=== PATIENT | male | born 1985 | race Caucasian/White ===

== ENCOUNTER 2020-02-17 12:10 | Emergency (ER) | payer SELFPAY ==
--- NOTE | ~2020-02-17 | XR_ITS ---
EXAMINATION: XR wrist LT min 3V DATE: 02/17/2020 12:34 INDICATION: Left wrist pain. Injury. TECHNIQUE: 4 views of left wrist were obtained. COMPARISON: None. FINDINGS: There is a nondisplaced transverse fracture of distal radius. No involvement of the distal articular surface or distal radioulnar joint. Ulnar styloid is intact. Joint spaces are normal. IMPRESSION: 1. Nondisplaced transverse fracture of distal radius. Reviewed, dictated and finalized at location A.
[2020-02-17 12:22] VITALS: BP 151/87; PULSE 65; RESP 16; TEMP 36.4; O2SAT 99
--- NOTE | 2020-02-17 12:24 | PC.NURSE ---
1221 Pt taken from triage to xray
--- NOTE | 2020-02-17 12:51 | ED.UPPEXIN ---
HPI - Extremity Injury (Upper) General Chief Complaint: Extremity Injury, Upper Stated Complaint: left wrist pain Time Seen by Provider: 02/17/20 12:36 Source: patient and RN notes reviewed Mode of arrival: ambulatory Limitations: no limitations History of Present Illness HPI narrative: Patient presents today with an injury to his left wrist. States he was pull starting a 4 aldrich, when it backfired and yanked the string the opposite way, tweaking his wrist. Denies numbness or tingling in the arm or hand. Currently rates his pain 6/10 at rest, which increases to 10/10 with movement. Injury occurred at 1030 this morning. MD complaint: injury to: left and wrist Related Data Home Medications Medication Instructions Recorded Confirmed No Home Medications 02/17/20 02/17/20 Allergies Allergy/AdvReac Type Severity Reaction Status Date / Time No Known Allergies Allergy Verified 02/17/20 12:36 Review of Systems Review of Systems: Narrative: CONSTITUTIONAL: Denies body aches, fever, chills, or sweats. EYES: Denies visual changes, redness, or discharge. ENT: Denies rhinorrhea, congestion, sore throat, or otalgia. CARDIOVASCULAR: Denies chest pain, palpitations, or edema. RESPIRATORY: Denies cough or dyspnea. GASTROINTESTINAL: Denies abdominal pain, nausea, vomiting, or diarrhea. GENITOURINARY: Denies dysuria or hematuria. SKIN: Denies rash, itching, or wounds. MUSCULOSKELETAL: Denies back pain, or myalgia. + Left wrist injury NEUROLOGIC: Denies headache, numbness, tingling, or weakness. PSYCH: Denies depression or anxiety. PMFSH Social History Social History Gender identity (if verbalized by the patient): Male Comments At time of signature, I have reviewed and agree with nursing past medical, surgical, social and family history unless otherwise noted. Please see nursing chart for further information. There is no relevant family history pertinent to the presenting complaint Exam Narrative: Exam Narrative: GENERAL: Well-appearing, well-nourished, and in no acute distress. HEAD: Normocephalic, atraumatic. EYES: EOMI. No redness or drainage. Conjunctivae normal. ENT: Mucous membranes pink and moist. NECK: Normal AROM. CHEST: No respiratory distress. EXTREMITIES: Left wrist: Tenderness to the distal radius with moderate localized swelling dorsally. No tenderness to the distal ulna. No snuffbox tenderness. No distal edema. No ecchymosis or wounds noted. Distal sensation intact. Capillary refill normal. Radial pulse normal. Pain with any active or passive range of motion. SKIN: Warm, dry, no rash. Capillary refill normal. Normal skin turgor. NEURO: No focal deficits. Alert and oriented x3. Gait steady. PSYCH: Normal affect. No signs of depression or anxiety. Course Vital Signs Vital signs: Vital Signs Temperature 97.5 F L 02/17/20 12:22 Pulse Rate 65 02/17/20 12:22 Respiratory Rate 16 02/17/20 12:22 Blood Pressure 151/87 H 02/17/20 12:22 Pulse Oximetry 99 02/17/20 12:22 Temperature 97.5 F L 02/17/20 12:22 Pulse Rate 65 02/17/20 12:22 Respiratory Rate 16 02/17/20 12:22 Blood Pressure 151/87 H 02/17/20 12:22 Pulse Oximetry 99 02/17/20 12:22 Reviewed. Pt has been instructed to follow up with his PCP regarding his elevated blood pressure today. MDM - Extremity Injury (Upper) Differential Diagnosis Differential diagnosis: Likely sprain and strain of wrist, fracture of wrist and fracture of hand Imaging Data Radiologist's impression: ITS Impressions Wrist X-Ray 02/17/20 12:40 IMPRESSION: 1. Nondisplaced transverse fracture of distal radius. Critical Care Time Critical Care Time Critical Care Time: No Discharge Plan Discharge Prescriptions: No Action No Home Medications RF: 0
== END 2020-02-17 13:06 | disposition home or self-care (01) ==
PROVIDERS: Emergency Provider Nurse Practitioner
DX: S52.592A Other fractures of lower end of left radius, initial encounter for closed fracture (principal); X50.9XXA Other and unspecified overexertion or strenuous movements or postures, initial encounter; Z87.891 Personal history of nicotine dependence
CPT/HCPCS: 29125; 73110; 99214; G0463

== ENCOUNTER 2023-08-09 15:50 | Emergency (ER) | payer SELFPAY ==
--- NOTE | ~2023-08-09 | CT_ITS ---
EXAMINATION: CT chest abdomen pelvis w con DATE: 08/09/2023 20:12 INDICATION: Left rib pain. Left abdominal pain. Fall. TECHNIQUE: Computed tomography (CT) of the chest, abdomen, and pelvis was performed with 100 mL Omnip aque 350 intravenous contrast. Automated exposure control and iterative reconstruction technique were employed. The dose-length product was 1477.92 mGy-cm. COMPARISON: CT abdomen and pelvis 06/27/16 FINDINGS: CHEST CT: The lungs demonstrate mild atelectasis. There are a few nodules in the lungs measuring up to 4 mm, li susanne benign. A calcified left lung nodule and calcified left hilar lymph nodes are consistent with ol d granulomatous disease. No pleural effusion. The heart size is normal. No pericardial effusion. Ther e is mild thoracic spondylosis. ABDOMEN/PELVIS CT: The liver, gallbladder, spleen, pancreas, adrenal glands, and kidneys are normal. There are no dilate d loops of bowel. The appendix is normal. There are no pathologically enlarged lymph nodes. There is no free intraperitoneal fluid. There is mild lumbar spondylosis. IMPRESSION: 1. No posttraumatic findings. Reviewed, dictated and finalized at location E. BILITATION SERVICES COUNSELOR
--- NOTE | ~2023-08-09 | XR_ITS ---
EXAMINATION: XR ribs LT 2V w CXR 2V INDICATION: Left chest pain TECHNIQUE: Frontal and lateral views of the chest and 3 views of the left ribs were obtained. COMPARISON: 11/11/2014 FINDINGS: The lungs are free of acute opacities. No pleural effusion or pneumothorax. The cardiomedia stinal silhouette is normal. No displaced rib fracture is identified. IMPRESSION: 1. No acute cardiopulmonary abnormality or evidence of displaced rib fracture. Reviewed, dictated and finalized at location B. M CONVEYOR OPERATOR
[2023-08-09 15:54] VITALS: BP 147/91; PULSE 75; RESP 19; TEMP 36.6; O2SAT 100
[2023-08-09] MEDS: ACETAMINOPHEN 500 MG TABLET 1000 MG PO (19:19)
--- NOTE | 2023-08-09 19:27 | ED.BACK ---
HPI - Back Pain/Injury General Chief Complaint: Back Pain/Injury Stated Complaint: L rib pain Time Seen by Provider: 08/09/23 17:00 Source: patient Mode of arrival: ambulatory Limitations: no limitations History of Present Illness HPI Narrative: Patient is a 37 y/o male who presents to the ED with c/o L flank/rib pain. Patient reports he fell against a metal crate today at work and hit against the crate with his left lateral and posterior ribs. He denies head injury or LOC. He complains of pain to his left-sided ribs, worse with movement and taking deep breath. He has not taken anything for pain. Denies shortness of breath or dyspnea on exertion. Denies anterior chest pain. Denies significant abdominal pain, nausea, vomiting. Related Data Allergies Allergy/AdvReac Type Severity Reaction Status Date / Time Cat Dander Allergy Unknown Itching Uncoded 08/09/23 17:06 Review of Systems Review of Systems: CONSTITUTIONAL: Denies fever, chills, or sweats. CARDIOVASCULAR: Denies chest pain. RESPIRATORY: See HPI. GASTROINTESTINAL: Denies abdominal pain, nausea, vomiting. MUSCULOSKELETAL: See HPI. NEUROLOGIC: Denies headache, dizziness, numbness, or weakness. All systems reviewed & are unremarkable except as noted in HPI and below PMFSH Social History Social History Gender identity (if verbalized by the patient): Male Exam Narrative: GENERAL: Well appearing, obese with BMI of 34.3, non-toxic, in no acute distress. HEAD: Normocephalic, atraumatic. RESPIRATORY: Airway patent, respirations nonlabored. Clear to auscultation bilaterally, no rales, rhonchi, wheezing. No splinting. CARDIOVASCULAR: Regular rate and rhythm without murmurs, rubs, or gallops. ABDOMINAL: Soft, tenderness to palpation throughout left upper quadrant, left-sided mid abdomen. Normoactive BS. MUSCULOSKELETAL: Moves all extremities. No gross deformities. TTP to L posterolateral lower rib cage, no palpable deformities or crepitus. SKIN: Warm, dry, normal color. NEURO: A&O X3. Speech clear. Cranial nerves II-XII grossly intact. Steady gait. No ataxic movements. PSYCHIATRIC: Appropriate mood and affect. Normal interaction. Course Vital Signs Vital signs: Vital Signs Temperature 97.8 F 08/09/23 15:54 Pulse Rate 75 08/09/23 15:54 Respiratory Rate 19 08/09/23 15:54 Blood Pressure 147/91 H 08/09/23 15:54 Pulse Oximetry 100 08/09/23 15:54 Oxygen Delivery Room Air 08/09/23 15:54 Temperature 97.8 F 08/09/23 15:54 Pulse Rate 72 08/09/23 21:39 Respiratory Rate 17 08/09/23 21:39 Blood Pressure 138/89 08/09/23 21:39 Pulse Oximetry 100 08/09/23 21:39 Oxygen Delivery Room Air 08/09/23 15:54 MDM - Back Pain/Injury MDM Narrative Medical decision making narrative: Patient presented to ED with injury at work, complaining of pain to the left lateral and posterior ribs. Vital signs stable upon arrival. Oxygen stable on room air. Patient denying shortness of breath. Does report pleuritic pain, but denies feeling short of breath with exertion. Exam revealed moderate tenderness throughout left-sided abdomen as well as L posterolateral ribs. Initial chest x-ray with ribs unremarkable, no obvious rib fracture, no pneumothorax, no other acute cardiopulmonary abnormality. Given amount of abdominal tenderness on exam, will obtain further imaging. CT chest/abd/pelvis obtained and without evidence for traumatic findings. No rib fracture or intra-abdominal abnormality. Patient updated on imaging results. He will be discharged at this time. Will prescribe lidocaine patches. Advised to continue Tylenol and ibuprofen as needed for pain. He agrees w/ plan. Given return precautions. Discharged in stable condition. Medical Records Attestation: I reviewed the patient's medical records. Lab Data Attestation: I reviewed the patient's lab results. 08/09/23 19:39
[2023-08-09 19:58] LABS: Anion Gap 7 mmol/L (8-16); Blood Urea Nitrogen 20 mg/dL (9-20); Calcium 9.9 mg/dL (8.4-10.2); Carbon Dioxide 26 mmol/L (22-30); Chloride 105 mmol/L (98-107); Estimated CRCL calculation 133 ml/min; Estimated Glomerular Filt Rate > 60; Glucose 112 mg/dL (65-110); Potassium 3.9 mmol/L (3.4-5.0); Sodium 138 mmol/L (137-145)
[2023-08-09 21:39] VITALS: BP 138/89; PULSE 72; RESP 17; O2SAT 100
== END 2023-08-09 21:40 | disposition home or self-care (01) ==
PROVIDERS: Emergency Provider Physician Assistant
DX: S20.212A Contusion of left front wall of thorax, initial encounter (principal); W22.8XXA Striking against or struck by other objects, initial encounter; Y99.0 Civilian activity done for income or pay
CPT/HCPCS: 36415; 71046; 71100; 71260; 74177; 80048; 99284; A9270; J1885; Q9967